=== PATIENT | male | born 1960 | race Caucasian/White ===

== ENCOUNTER 2024-02-05 11:31 | Emergency (ER) | payer BC, SELFPAY ==
[2024-02-05 11:50] VITALS: BP 146/90; PULSE 106; RESP 16; TEMP 36.9; O2SAT 97; BMI 33.9
--- NOTE | 2024-02-05 11:58 | XR_ITS ---
WS: [id number] PORTABLE CHEST HISTORY: weakness COMPARISON: 10/19/2008 Lungs are clear and well expanded. No pleural effusion or pneumothorax. Cardiac size: Normal. Mediastinum/Aorta: Normal mediastinum. No osseous abnormality seen. XR/XR chest 1V portable [id number] IMPRESSION: Unremarkable portable chest.
--- NOTE | 2024-02-05 11:58 | ECG_ITS ---
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 Measurements Intervals [place] Rate: 76 P: 3 OR: 134 QRS: -3 QRSD: 110 T: 46 QT: 388 QTc: 437 Interpretive Statements SINUS RHYTHM Compared to ECG 02/05/2024 13:29:49 No significant changes Electronically Signed On 02-05-2024 14:56:54 CDT by Ivan Gudino M.D. [id number]
[2024-02-05 12:47] LABS: Basophils % 0.5 %; Lymphocytes # 0.4 10^3/uL (0.8-4.8); Lymphocytes % 7.3 %; Mean Corpuscular Hemoglobin 33.6 pg (27-33); Mean Corpuscular Volume 95.9 fl (82-101); Mean Platelet Volume 10.1 fL (7.4-10.4); Monocytes # 0.4 10^3/uL (0.2-0.9); Monocytes % 6.9 %; Neutrophils % 85.1 %; Nucleated Red Blood Cells % 0 %; Platelet Count 49 10^3/cmm (157-399); Red Blood Count 4.38 10^6/uL (3.85-5.65); Red Cell Distribution Width 15.8 % (12.1-15.1); White Blood Count 5.76 10^3/uL (3.29-11.43)
[2024-02-05 13:06] LABS: Troponin(5th) Baseline 16 ng/L (0-15)
[2024-02-05 13:10] LABS: Alanine Aminotransferase 36 U/L (0-41); Albumin Level 4.7 g/dL (3.5-5.2); Alkaline Phosphatase 74 U/L (40-130); Anion Gap 22.1 (5-19); Aspartate Amino Transferase 66 U/L (0-40); Blood Urea Nitrogen 13 mg/dL (8-23); Carbon Dioxide 28 mmol/L (22-29); Chloride 97 mmol/L (98-107); Creatinine Clr Calc Pharmacy 122.4352; Globulin 2.6 g/dL (1.3-4.6); Glomerular Filtration Rate 98.3 mL/min (90-130); Glucose 244 mg/dL (65-115); Lipase 71 U/L (13-60); Osmolality Calculated 306 mOsm/kg (285-295); Potassium 3.1 mmol/L (3.5-5.1); Sodium 144 mmol/L (136-145); Total Bilirubin 1.2 mg/dL (0.15-1.2); Total Protein 7.3 g/dL (6.6-8.7)
--- NOTE | 2024-02-05 13:29 | ECG_ITS ---
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 Measurements Intervals [place] Rate: 80 P: 103 MS: 145 QRS: -7 QRSD: 105 T: 33 QT: 381 QTc: 440 Interpretive Statements SINUS RHYTHM No previous ECG available for comparison Electronically Signed On 02-05-2024 14:57:33 CDT by Ivan Gudino M.D. [id number]
--- NOTE | 2024-02-05 13:40 | XR_ITS ---
WS: [id number] XR coccyx 2V [id number] REASON FOR EXAM: pain FINDINGS: No fracture or displacement. No soft tissue abnormality. XR/XR coccyx 2V [id number] IMPRESSION: No significant abnormality.
--- NOTE | 2024-02-05 13:40 | XRR_ITS ---
PROCEDURE INFORMATION: Exam: XR Lumbosacral Spine Exam date and time: 02/05/2024 1:49 PM Age: 63 years old Clinical indication: Low back pain TECHNIQUE: Imaging protocol: Radiologic exam of the lumbosacral spine. Views: 2 or 3 views. COMPARISON: No relevant prior studies available. FINDINGS: Bones/joints: 2 mm of retrolisthesis of L3 on L4. Straightening of the normal lumbar lordosis. Alignment is otherwise intact. No evidence of acute fracture. Moderate multilevel degenerative changes of the lumbar spine. Soft tissues: The soft tissues are within normal limits. XR/XR lumbar spine 2-3V* [id number] IMPRESSION: Moderate multilevel degenerative changes of the lumbar spine.
--- NOTE | 2024-02-05 13:47 | ED_ITS ---
HPI - Weakness 2 General: Chief complaint: Weakness Stated complaint: dizzy,N/V Time Seen by Provider: 02/05/24 13:30 Source: patient Mode of arrival: ambulatory Limitations: no limitations History of Present Illness: 63-year-old male states that he has been having nausea vomiting feeling unwell over the last day states blood pressures been running high today as well. States has been under a lot of life stressors states he is going through a separation with his causing him some severe depression he denies being SI or HI. He denies any abdominal pain denies any fever he states he had a fall 2 weeks ago landed on his buttocks has been having some low back pain since then as well he had a history of back injuries in the past. Associated symptoms: Reports nausea and vomiting; Denies chest pain, chills, dysuria, fever(s) or headache(s) Review of Systems 2 Const: Denies: fever(s), chills, body aches or change in appetite Eyes: Denies: eye discomfort ENMT: Denies: throat pain or dental pain Card: Denies: chest pain Resp: Denies: dyspnea GI: Reports: nausea and vomiting; Denies: abdominal pain or diarrhea : Denies: dysuria Musc: Reports: back pain; Denies: neck pain Skin/Breast: Denies: rash Neuro: Denies: headache(s) Physical Exam 2 Const: COMMON NORMALS: no acute distress, patient oriented x3 and healthy appearing HENMT: COMMON NORMALS: normocephalic and atraumatic HEAD & SCALP: n ormocephalic and atraumatic Eye: COMMON NORMALS: Equal, round and reactive pupils present and EOMs intact bilaterally PUPIL: Yes Equal, round and reactive pupils present Neck/C-Spine: COMMON NORMALS: full ROM and supple Chest: COMMONS NORMALS: normal inspection of the chest Resp: COMMON NORMALS: normal respiratory effort, No retractions, No use of accessory muscles and clear to auscultation bilaterally AUSCULTATION: clear to auscultation bilaterally Cardio: COMMON NORMALS: regular rate, regular rhythm and No murmurs present (Cardio) RATE: regular rate RHYTHM: regular rhythm GI: COMMON NORMALS: Normal to inspection, nondistended, normoactive bowel sounds present, Soft to palpation, non-tender and no masses PALPATION: Yes Soft to palpation Extremity: COMMON NORMALS: normal to inspection and full ROM Neuro: COMMON NORMALS: patient oriented x3, moves all extremities and no focal motor deficits Psych: COMMON NORMALS: mental status grossly normal, Normal thought process present and cooperative THOUGHT PROCESS: Normal thought process present Skin: COMMON NORMALS: no rashes or lesions noted and no wounds GENERAL SKIN EXAM: no rashes or lesions noted Course 2 Vital Signs: Vital signs: Vital Signs Temperature 98.4 F 02/05/24 11:50 Pulse Rate 74 02/05/24 16:30 Respiratory Rate 20 H 02/05/24 16:30 Blood Pressure 147/95 02/05/24 16:30 Pulse Oximetry 90 02/05/24 16:30 Oxygen Delivery Me thod Room Air 02/05/24 11:50 MDM - Weakness Medical Decision Making Patient presents here with vomiting he has been well-appearing here with no vomiting here he was hypertensive with blood pressures improved he has an appoint with his PCP next week informed to take a log of his blood pressure for discharge he did stated had some dysuria I did check his urine he does have a UTI we will start him on antibiotics he is stable for discharge follow-up with PCP return if worsening. Medical Records I reviewed the patient's medical records. Lab Data I reviewed the patient's lab results. 02/05/24 12:39 02/05/24 12:39 Radiology Impressions Chest X-Ray 02/05/24 11:58 IMPRESSION: Unremarkable portable chest. Coccyx X-Ray 02/05/24 13:40 IMPRESSION: No significant abnormality. Laboratory Results WBC 5.76 10^3/uL (3.29-11.43) 02/05/24 12:39 RBC 4.38 10^6/uL (3.85-5.65) 02/05/24 12:39 Hgb 14.70 g/dL (11.27-16.99) 02/05/24 12:39 Hct 42.0 % (37-53) 02/05/24 12:39 MCV 95.9 fl (82-101) 02/05/24 12:39 MCH 33.6 pg (27-33) H 02/05/24 12:39 MCHC 35.0 g/dL (30-55) 02/05/24 12:39 RDW 15.8 % (12.1-15.1) H 02/05/24 12:39 Plt Count 49 10^3/cmm (157-399) L 02/05/24 12:39 MPV 10.1 fL (7.4-10.4) 02/05/24 12:39 Neut % (Auto) 85.1 % 02/05/24 12:39 Lymph % (Auto) 7.3 % 02/05/24 12:39 [place] % (Auto) 6.9 % 02/05/24 12:39 Eos % (Auto) 0.0 % 02/05/24 12:39 Baso % (Auto) 0.5 % 02/05/24 12:39 Neut # (Auto) 4.90 10^3/uL (1.8-7.7) 02/05/24 12:39 Lymph # (Auto) 0.4 10^3/uL (0.8-4.8) L 02/05/24 12:39 [place] # (Auto) 0.4 10^3/uL (0.2-0.9) 02/05/24 12:39 Eos # (Auto) 0.0 10^3/uL (0.0-0.8) 02/05/24 12:39 Baso # (Auto) 0.0 10^3/uL (0.0-0.1) 02/05/24 12:39 Nucleated RBC % (auto) 0 % 02/05/24 12:39 Nucleated RBCs # 0.0 /100WBC 02/05/24 12:39 Sodium 144 mmol/L (136-145) 02/05/24 12:39 Potassium 3.1 mmol/L (3.5-5.1) L 02/05/24 12:39 Chloride 97 mmol/L (98-107) L 02/05/24 12:39 Carbon Dioxide 28 mmol/L (22-29) 02/05/24 12:39 Anion Gap 22.1 (5-19) H 02/05/24 12:39 BUN 13 mg/dL (8-23) 02/05/24 12:39 Creatinine 0.8 mg/dL (0.7-1.2) 02/05/24 12:39 GFR Calculation 98.3 mL/min (90-130) 02/05/24 12:39 Glucose 244 mg/dL (65-115) H 02/05/24 12:39 Calculated Osmolality 306 mOsm/kg (285-295) H 02/05/24 12:39 Calcium 9.0 mg/dL (8.5-10.5) 02/05/24 12:39 Total Bilirubin 1.2 mg/dL (0.15-1.2) 02/05/24 12:39 AST 66 U/L (0-40) H 02/05/24 12:39 ALT 36 U/L (0-41) 02/05/24 12:39 Alkaline Phosphatase 74 U/L (40-130) 02/05/24 12:39 Troponin T Baseline 16 ng/L (0-15) H 02/05/24 12:39 Troponin T 120 Minute 15.69 ng/L (0-15) H 02/05/24 14:26 Delta Troponin T -0.31 ABS# (0-10) L 02/05/24 14:26 Total Protein 7.3 g/dL (6.6-8.7) 02/05/24 12:39 Albumin 4.7 g/dL (3.5-5.2) 02/05/24 12:39 Globulin 2.6 g/dL (1.3-4.6) 02/05/24 12:39 Lipase 71 U/L (13-60) H 02/05/24 12:39 Urine Color [place] (Yellow) A 02/05/24 15:18 Urine Appearance Cloudy (CLEAR) A 02/05/24 15:18 Urine pH 6.5 (5-7) 02/05/24 15:18 Ur Specific [place] 1.022 (1.005-1.030) 02/05/24 15:18 Urine Protein 3+ (Negative) A 02/05/24 15:18 Urine Glucose (UA) Negative (Normal) 02/05/24 15:18 Urine Ketones Negative (Negative) 02/05/24 15:18 Urine Blood 3+ (Negative) A 02/05/24 15:18 Urine Nitrate Positive (Negative) A 02/05/24 15:18 Urine Bilirubin 1+ (Negative) H 02/05/24 15:18 Urine Urobilinogen 1.0 mg/dL (Negative) 02/05/24 15:18 Ur Leukocyte Esterase 2+ (Negative) A 02/05/24 15:18 Urine RBC >100 /hpf (0-2) H 02/05/24 15:18 Urine WBC >100 /hpf (0-5) H 02/05/24 15:18 Ur Squamous Epith Cells 0-5 /hpf (0-5) 02/05/24 15:18 Amorphous Sediment Not Reportable 02/05/24 15:18 Urine Bacteria 3+ /hpf (NONE) H 02/05/24 15:18 Hyaline Casts 4.11 /lpf 02/05/24 15:18 Ur Oval Fat Bodies 1+ /hpf 02/05/24 15:18 All radiology interpretation(s) finalized by discharge Discharge Plan Discharge Patient Disposition: Home Clinical Impression: Vomiting, Hypertension, Thrombocytopenia, Acute cystitis Condition: Stable Prescriptions: New cephalexin 500 mg capsule 500 mg PO TID 7 Days Qty: 21 0RF No Action lisinopril 20 mg tablet 20 mg PO BID omeprazole 20 mg Capsule,Delayed Release(Dr/Ec) 20 mg PO DAILY metoprolol succinate 25 mg tablet extended release 24 hr 25 mg PO QAM rosuvastatin 10 mg tablet 10 mg PO QPM Discharge Orders: Discharge ED (Routine); Ordered 02/05/24 Ordered By: Chaparro Adorno Referrals: Karlos Brown MD [Primary Care Provider] - Discharge Diet: Advance as tolerated Discharge Activity: Resume usual activity Patient Instructions: Acute Nausea and Vomiting (ED), Hypertension (ED), Thrombocytopenia (ED) Coding Level of Care Code ED Vocational Evaluator for Rosi Nicholas
[2024-02-05] MEDS: ondansetron 2 mg/ML SDV 2 mL 4 MG IVP (14:13)
[2024-02-05] MEDS: sodium chloride 0.9% 1,000 ML 999 ML IV (14:14)
[2024-02-05] MEDS: labetalol 5 mg/mL SDV 20mL 10 MG IVP (14:17)
[2024-02-05 14:18] VITALS: BP 167/107; PULSE 79; RESP 22; O2SAT 18
[2024-02-05 14:48] LABS: Troponin 5 2HR 15.69 ng/L (0-15)
[2024-02-05 14:49] LABS: Troponin 5 2HR Delta -0.31 ABS# (0-10)
[2024-02-05 15:28] LABS: Charge for UA Resulting for Rev
[2024-02-05 15:30] VITALS: BP 162/105; PULSE 70; RESP 19; O2SAT 92
[2024-02-05 15:33] LABS: Bilirubin Urine 1+ (Negative); Blood Urine 3+ (Negative); Glucose Urine UA Negative (Normal); Ketones Urine Negative (Negative); Leukocyte Esterase Urine 2+ (Negative); Nitrate Urine Positive (Negative); Protein Urine 3+ (Negative); Specific Gravity, Urine 1.022 (1.005-1.030); Urine Appearance Cloudy (CLEAR); pH Urine 6.5 (5-7)
[2024-02-05 15:38] LABS: Bacteria Urine 3+ /hpf; Hyaline Casts Urine 4.11 /lpf; RBC Urine >100 /hpf (0-2); Squamous Epithelial Cell Urine 0-5 /hpf (0-5); WBC Urine >100 /hpf (0-5)
[2024-02-05] MEDS: hyDRALAzine 20 mg/mL INJ 1 mL 10 MG IVP (16:02)
[2024-02-05 16:13] LABS: Urine Color Orange (Yellow)
[2024-02-05 16:18] LABS: Add Urine Culture? Yes; Oval Fat Bodies Urine 1+ /hpf
[2024-02-05 16:30] VITALS: BP 147/95; PULSE 74; RESP 20; O2SAT 90
[2024-02-05] MEDS: cefTRIAXone 1,000 mg SDV 1000 MG IVP (16:30)
[2024-02-05 17:15] VITALS: BP 144/90; PULSE 67; RESP 18; O2SAT 94
== END 2024-02-05 17:19 | disposition home or self-care (01) ==
PROVIDERS: Emergency Provider Emergency Medicine; PCP Family Medicine
DX: R11.11 Vomiting without nausea (principal); I10 Essential (primary) hypertension; D69.6 Thrombocytopenia, unspecified; N30.00 Acute cystitis without hematuria
CPT/HCPCS: 36415; 71045; 72100; 72220; 80053; 81003; 81015; 83690; 84484; 85025; 87077; 87086; 87186; 93005; 96361; 96374; 96375; 99285; J0360; J0696; J2405; J3490; J7030

== ENCOUNTER 2024-11-27 07:36 | Oncology outpatient (recurring) (ONCR) | payer BC, SELFPAY ==
[2024-11-27 08:31] LABS: Basophils # 0.1 10^3/uL (0.0-0.1); Basophils % 1.5 %; Eosinophils # 0.1 10^3/uL (0.0-0.8); Eosinophils % 2.5 %; Hematocrit 39.9 % (37-53); Lymphocytes # 1.4 10^3/uL (0.8-4.8); Lymphocytes % 29.5 %; Mean Corpuscular HGB Conc 33.8 g/dL (30-55); Mean Corpuscular Hemoglobin 32.1 pg (27-33); Monocytes # 0.6 10^3/uL (0.2-0.9); Monocytes % 12.9 %; Neutrophils # 2.52 10^3/uL (1.8-7.7); Neutrophils % 53.2 %; Nucleated Red Blood Cells % 0 %; Platelet Count 300 10^3/cmm (157-399); Red Cell Distribution Width 13.7 % (12.1-15.1); White Blood Count 4.74 10^3/uL (3.29-11.43)
[2024-11-27 08:51] LABS: Alanine Aminotransferase 49 U/L (0-41); Albumin Level 4.1 g/dL (3.5-5.2); Alkaline Phosphatase 57 U/L (40-130); Anion Gap 17.7 (5-19); Aspartate Amino Transferase 52 U/L (0-40); Blood Urea Nitrogen 8 mg/dL (8-23); Carbon Dioxide 23 mmol/L (22-29); Chloride 104 mmol/L (98-107); Creatinine Clr Calc Pharmacy 108.3271; Glomerular Filtration Rate 85.5 mL/min (90-130); Glucose 98 mg/dL (65-115); Lactate Dehydrogenase 198 U/L (135-225); Osmolality Calculated 290 mOsm/kg (285-295); Potassium 3.7 mmol/L (3.5-5.1); Sodium 141 mmol/L (136-145); Total Bilirubin 0.5 mg/dL (0.15-1.2); Total Protein 7.1 g/dL (6.6-8.7); Uric Acid 5.9 mg/dL (3.4-7.0)
== END 2024-11-29 23:59 | disposition home or self-care (01) ==
PROVIDERS: PCP Family Medicine; Visit Provider Internal Medicine
DX: D69.6 Thrombocytopenia, unspecified (principal)
CPT/HCPCS: 36415; 80053; 83615; 84550; 85025; 86140

== ENCOUNTER 2024-12-18 14:54 | Oncology outpatient (recurring) (ONCR) | payer BC, SELFPAY ==
--- NOTE | 2024-12-08 08:00 | US_ITS ---
WS: [id number] Complete ABDOMINAL ULTRASOUND HISTORY: thrombocytopenia COMPARISON: 05/10/2022 Liver: 13.9 cm in length. Normal size liver. Mild coarse echotexture. No mass. Portal Vein: Normal hepatopetal flow with monophasic waveform. Gallbladder: Normally distended gallbladder with no stones or wall thickening. CBD: 0.4 cm Pancreas: Obscured Right kidney: 11.3 cm x 4.7 x 4.6 cm. Cortex:1.2 cm. Normal size and echogenicity. No hydronephrosis or mass. Left kidney: 11.7 cm x 5.3 cm x 5.9 cm. Cortex: 1.4 cm. Normal size and echogenicity. No hydronephrosis or mass. Spleen: 10.0 cm. Normal size and echogenicity. Aorta and IVC: Unremarkable abdominal aorta and IVC. US/US abdomen complete* [id number] Impression: Normal complete abdomen ultrasound. Hepatomegaly has decreased since the prior study. Improved hepatic steatosis.
== END 2024-12-29 23:59 | disposition home or self-care (01) ==
PROVIDERS: PCP Family Medicine; Visit Provider Internal Medicine
DX: Z53.9 Procedure and treatment not carried out, unspecified reason (principal)
CPT/HCPCS: 76700